=== PATIENT | male | born 1990 | race African-American/Black ===

== ENCOUNTER 2017-03-29 05:12 | Emergency (ER) | payer OTHER ==
[~2017-03-29] VITALS: Ht 170.2 cm; Wt 75.1 kg
[2017-03-29 05:20] VITALS: BP 124/79
== END 2017-03-29 07:38 | disposition home or self-care (01) ==
LOC: ER 05:12 → EDBD 05:12 → EDSEX 05:12 → ER 07:16
DX: S10.93XA Contusion of unspecified part of neck, initial encounter (principal); J45.909 Unspecified asthma, uncomplicated; W19.XXXA Unspecified fall, initial encounter; Y93.89 Activity, other specified; Y99.8 Other external cause status; Y92.89 Other specified places as the place of occurrence of the external cause